=== PATIENT | male | born 1975 | race Two or more races ===

== ENCOUNTER 2022-09-27 23:28 | Emergency (ER) | payer MEDICAID ==
[~2022-09-27] VITALS: Ht 172.7 cm; Wt 102.1 kg
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
[2022-09-28] MEDS ORDERED: HYDROCODONE/APAP 5/325MG TABLET ONE (00:43)
--- NOTE | 2022-09-28 00:47 | NUR ---
BROUGHT TO CT DEPT
[2022-09-28] MEDS ORDERED: HYDROCODONE/APAP 5/325MG TABLET PO ONE (01:00)
--- NOTE | 2022-09-28 02:02 | NUR ---
Patient discharged to home in stable condition. Written and verbal after care instructions given. Patient verbalizes understanding of instruction.
[2022-09-28 02:03] VITALS: BP 118/68
== END 2022-09-28 02:03 | disposition home or self-care (01) ==
LOC: ER 09-28 00:36
DX: S39.012A Strain of muscle, fascia and tendon of lower back, initial encounter (principal); M62.838 Other muscle spasm; Z60.2 Problems related to living alone; V89.2XXA Person injured in unspecified motor-vehicle accident, traffic, initial encounter; Y93.89 Activity, other specified; Y92.89 Other specified places as the place of occurrence of the external cause; Y99.8 Other external cause status
CPT/HCPCS: 72125-TC; 72131-TC